=== PATIENT | female | born 2000 | race African-American/Black ===

== ENCOUNTER 2022-10-21 10:13 | Emergency (ER) | payer OTHER ==
[~2022-10-21] VITALS: Ht 162.6 cm; Wt 100.0 kg
[2022-10-21 10:17] VITALS: BP 138/78
[2022-10-21] MEDS ORDERED: ACETAMINOPHEN 500 MG TABLET PO ONE (11:30)
[2022-10-21 11:48] LABS: COVID AG,FIA SOURCE NASOPHARYNGEAL
[2022-10-21 12:20] LABS: INFLUENZA TYPE A NEGATIVE FOR TYPE A (NEGATIVE); INFLUENZA TYPE B NEGATIVE FOR TYPE B (NEGATIVE)
[2022-10-21 12:22] LABS: RAPID GROUP A STREP POSITIVE (NEGATIVE)
[2022-10-21] MEDS ORDERED: DEXAMETHASONE 4 MG TABLET PO ONE (12:30)
[2022-10-21] MEDS ORDERED: IBUP-1492 PO (12:38)
[2022-10-21] MEDS ORDERED: PENI500T2 PO (12:38)
[2022-10-21] MEDS ORDERED: ACET-3385 PO (12:39)
== END 2022-10-21 12:59 | disposition home or self-care (01) ==
LOC: EMS 10:16
DX: J02.0 Streptococcal pharyngitis (principal); Z20.822 Contact with and (suspected) exposure to COVID-19
CPT/HCPCS: 99283; 87426; 84702; 86308; 87430; 87804; 36415; J8540

== ENCOUNTER 2023-01-15 09:51 | Emergency (ER) | payer OTHER ==
[~2023-01-15] VITALS: Ht 162.6 cm; Wt 104.5 kg
[~2023-01-15 09:51] MED LIST: ACET-3385 PO; IBUP-1492 PO; PENI500T2 PO
[2023-01-15] MEDS ORDERED: MAG HYDROX/AL HYDROX/SIMETH ES 30 ML SUSPENSION UDCUP PO ONE (11:45)
[2023-01-15] MEDS ORDERED: FAMOTIDINE 20 MG TABLET PO ONE (11:45)
[2023-01-15 12:29] LABS: BASOPHILS % (AUTO) 0.2 % (0.0-2.0); EOSINOPHILS % (AUTO) 0.3 % (1.0-6.0); HEMATOCRIT 35.6 % (36-46); HEMOGLOBIN 11.8 g/dL (12.0-16.0); LYMPHOCYTES % (AUTO) 46.5 % (22.0-44.0); MEAN CORPUSCULAR HEMOGLOBIN 28.4 pg (26.0-34.0); MEAN CORPUSCULAR HGB CONC 33.1 G/dL (31.0-37.0); MEAN CORPUSCULAR VOLUME 86 fL (80-100); MONOCYTES # (AUTO) 0.5 K/uL (0.1-1.0); MONOCYTES % (AUTO) 12.6 % (2.0-9.0); NEUTROPHILS # (AUTO) 1.7 K/uL (1.8-7.7); NEUTROPHILS % (AUTO) 40.4 % (40.0-70.0); PLATELET COUNT (AUTO) 255 K/uL (150-450); RED BLOOD CELL COUNT(AUTO) 4.14 MIL/uL (4.00-5.20); RED CELL DISTRIBUTION WIDTH 15.5 % (11.5-14.5)
[2023-01-15 12:39] LABS: ANION GAP 7 mmol/L (8-16); CALCIUM, TOTAL 9.1 mg/dL (8.8-10.5); CARBON DIOXIDE 29 mmol/L (22-29); CHLORIDE 100 mmol/L (98-107); GLOMERULAR FILTR. RATE CALC > 60 mL/min (>60); GLUCOSE,RANDOM 89 mg/dL (70-110); POTASSIUM 3.8 mmol/L (3.5-5.1); SODIUM SERUM 136 mmol/L (136-145); UREA NITROGEN, BLOOD 9 mg/dL (7-18)
[2023-01-15 12:45] LABS: ALANINE AMINOTRANSFERASE 18 U/L (12-78); ALBUMIN 3.6 g/dL (3.4-5.0); ALKALINE PHOSPHATASE 77 U/L (46-116); ASPARTATE AMINOTRANSFERASE 21 U/L (15-37); BILIRUBIN,TOTAL 0.1 mg/dL (0.1-1.0); LIPASE 185 U/L (73-393); TOTAL PROTEIN, SERUM 8.2 g/dL (6.4-8.2)
[2023-01-15 13:26] VITALS: BP 120/77
== END 2023-01-15 14:25 | disposition left against medical advice (07) ==
LOC: EMS 09:51
DX: R10.13 Epigastric pain (principal)
CPT/HCPCS: 80053; 83690; 84703; 85025; 93005; 99284